=== PATIENT | female | born 1960 | race African-American/Black ===

== ENCOUNTER 2017-03-09 19:25 | Emergency (ER) | payer SELFPAY ==
[2017-03-09] MEDS ORDERED: Metoclopramide HCl 10 MG/2 ML VIAL ONE (20:30)
[2017-03-09] MEDS ORDERED: diphenhydrAMINE 50 MG/ML VIAL ONE (20:30)
[2017-03-09] MEDS ORDERED: Ketorolac Tromethamine 30 MG/ML VIAL ONE (20:30)
[2017-03-09] MEDS ORDERED: cloNIDine 0.1 MG TAB ONE (22:17)
[2017-03-09] MEDS ORDERED: methylPREDNISolone Sod Succ/PF 125 MG/2 ML VIAL ONE (22:17)
[2017-03-09] MEDS ORDERED: Magnesium Sulfate 2 GM/NS 0.9% 50 ML BAG ONE (22:17)
== END 2017-03-09 23:20 | disposition home or self-care (01) ==
LOC: ERS 19:25
DX: R51 Headache (principal)
CPT/HCPCS: 96361; 96365; 96375; J1200; J1885; J2765; J2930; J3475

== ENCOUNTER 2017-03-14 06:12 | Emergency (ER) | payer SELFPAY ==
--- NOTE | 2017-03-14 07:30 | CT ---
HEAD CT WITHOUT CONTRAST: Date: 03/14/17 COMPARISON: 03/22/09. HISTORY: Hypertension and headache. TECHNIQUE: Serial axial CT imaging at 5 mm intervals from vertex through skull base without contrast. FINDINGS: The imaged paranasal sinuses and mastoid air cells are well aerated. There is no displaced calvarial fracture. No intracranial hemorrhage, midline shift, or mass effect. IMPRESSION: No acute findings. POS: [facility]
[2017-03-14] MEDS ORDERED: Metoclopramide HCl 10 MG/2 ML VIAL ONE (07:50)
[2017-03-14] MEDS ORDERED: methylPREDNISolone Sod Succ/PF 125 MG/2 ML VIAL ONE (07:50)
[2017-03-14] MEDS ORDERED: diphenhydrAMINE 50 MG/ML VIAL ONE (07:50)
[2017-03-14] MEDS ORDERED: Ketorolac Tromethamine 30 MG/ML VIAL ONE (07:50)
[2017-03-14] MEDS ORDERED: Water For Inject, Bacteriostat 30 ML ONE (07:50)
== END 2017-03-14 11:40 | disposition home or self-care (01) ==
LOC: ERS 06:12
DX: I10 Essential (primary) hypertension (principal); R51 Headache; Z79.899 Other long term (current) drug therapy
CPT/HCPCS: 70450; 93005; 96361; 96365; 96366; 96375; J1200; J1885; J2765; J2930

== ENCOUNTER 2017-03-15 04:23 | Emergency (ER) | payer SELFPAY ==
[2017-03-15] MEDS ORDERED: Aspirin/APAP/Caffeine Tab (Excedrin Migraine) PO SCH (05:30)
[2017-03-15] MEDS ORDERED: Metoclopramide HCl 10 MG TAB PO SCH (06:30)
[2017-03-15] MEDS ORDERED: Ketorolac Tromethamine 30 MG/ML VIAL ONE (06:32)
[2017-03-15] MEDS ORDERED: diphenhydrAMINE 25 MG CAP ONE (06:32)
--- NOTE | 2017-03-31 17:49 | EKG ---
Test Reason : Blood Pressure : / mmHG Vent. Rate : 076 BPM Atrial Rate : 076 BPM P-R Int : 184 ms QRS Dur : 156 ms QT Int : 430 ms P-R-T Axes : 039 001 014 degrees QTc Int : 483 ms Normal sinus rhythm Right bundle branch block Abnormal ECG Confirmed by OSMEL ZELAYA D.O. ([id number]), telegraph editor LAVON KENNEY ([id number]) on 03/31/2017 5:48:03 PM Referred By: Confirmed By:OSMEL ZELAYA D.O.
== END 2017-03-15 07:52 | disposition home or self-care (01) ==
LOC: ERS 04:23
DX: R51 Headache (principal); I10 Essential (primary) hypertension; G43.909 Migraine, unspecified, not intractable, without status migrainosus; Z79.899 Other long term (current) drug therapy
CPT/HCPCS: 93005; 96372; J1885

== ENCOUNTER 2017-06-09 21:34 | Observation (INO) | payer SELFPAY ==
[2017-06-09] MEDS ORDERED: Acetaminophen 500 MG TAB ONE (21:58)
[2017-06-09 22:01] LABS: #Eosinphils 0.1 thou/uL (0.0-0.7); #Lymphocytes 2.1 thou/uL (1.20-3.40); #Monocytes 0.5 thou/uL (0.11-0.59); #Neutrophils 1.9 thou/uL (1.40-6.50); %Basophils 0.9 % (0.0-1.0); %Eosinophils 2.7 % (0.0-10.0); %Lymphocytes 45.3 % (21.0-51.0); %Monocytes 10.7 % (0.0-10.0); %Neutrophils 40.4 % (42.0-75.0); Hemoglobin 14.1 g/dL (12.0-16.0); Mean Corpuscular HGB CONC 33.9 g/dL (32.0-36.0); Mean Corpuscular Hemoglobin 28.8 pg (27.0-31.0); Mean Platelet Volume 6.6 fL (7.4-10.4); Platelet Count 202 thou/uL (130-400); RBC Distribution Width 13.2 % (11.5-14.5); White Blood Cell (WBC) Count 4.7 thou/uL (4.8-10.8)
[2017-06-09 22:23] LABS: ALT (SGPT) 18 U/L (8-55); AST (SGOT) 24 U/L (5-34); Albumin 4.7 g/dL (3.5-5.0); Alkaline Phosphatase 72 U/L (40-150); Anion Gap 14 mmol/L (10-20); BUN (Urea Nitrogen) 14 mg/dL (9.8-20.1); Bilirubin, Total 0.5 mg/dL (0.2-1.2); Calc. Creatinine Clearance 0 mL/min (70-130); Calcium 10.3 mg/dL (7.8-10.44); Carbon Dioxide 25 mmol/L (22-29); Chloride 102 mmol/L (98-107); Estimated GFR-MDRD 83; Globulin 3.8 g/dL (2.4-3.5); Glucose 109 mg/dL (70-105); Potassium 3.4 mmol/L (3.5-5.1); Protein, Total 8.5 g/dL (6.0-8.3); Sodium 138 mmol/L (136-145)
[2017-06-09 22:26] LABS: CKMB 2.8 ng/mL (0-6.6); Troponin I Less than 0.010 ng/mL (< 0.028)
[2017-06-09] MEDS ORDERED: Metoclopramide HCl 10 MG/2 ML VIAL ONE (22:30)
[2017-06-09] MEDS ORDERED: diphenhydrAMINE 50 MG/ML VIAL ONE (22:33)
--- NOTE | 2017-06-09 22:45 | RAD ---
PORTABLE AP CHEST X-RAY 06/09/17 HISTORY: Chest pain, hypertension, dizziness, and nausea for a couple of days. COMPARISON: 12/05/15 FINDINGS: The cardiac silhouette and pulmonary vasculature are within normal limits. Thoracic aorta is ectatic. Lungs are clear. There has been no interval change compared to the prior exam. IMPRESSION: Stable chest without evidence of an acute cardiopulmonary process. POS: [facility]
--- NOTE | 2017-06-09 23:35 | CT ---
NONCONTRAST CT HEAD 06/09/17 HISTORY: Gradually increasing frontal headache, left arm pain, dizziness and nausea. COMPARISON: 03/14/17. FINDINGS: There is no evidence of a hemorrhage, acute infarction, mass effect, or midline shift. The ventricula r system is normal in size, shape, and position. There has been no interval change when compared to t he prior exam. IMPRESSION: No acute intracranial abnormalities demonstrated. POS: [facility]
[2017-06-10] MEDS ORDERED: Ondansetron HCl/PF 4 MG/2 ML Vial IVP PRN (01:16)
[2017-06-10] MEDS ORDERED: Acetaminophen 325 MG TAB PO PRN (01:16)
[2017-06-10] MEDS ORDERED: Ondansetron ODT 4 MG TAB SL PRN (01:16)
[2017-06-10 01:32] VITALS: BMI 32.3
[2017-06-10 01:36] LABS: Troponin I Less than 0.010 ng/mL (< 0.028)
[2017-06-10] MEDS ORDERED: traMADol HCl 50 MG TAB PO SCH (02:00)
[2017-06-10] MEDS ORDERED: Metoclopramide HCl 10 MG TAB PO PRN (02:37)
[2017-06-10] MEDS ORDERED: Cyclobenzaprine 10 MG TAB PO PRN (02:37)
[2017-06-10 04:20] LABS: Cardiac Risk 4.5 (Less than 4.5)
[2017-06-10 04:24] LABS: Troponin I Less than 0.010 ng/mL (< 0.028)
--- NOTE | 2017-06-10 04:27 | HP ---
PRIMARY CARE PHYSICIAN: Tasia. CHIEF COMPLAINT: Headache with left-sided arm pain. HISTORY OF PRESENT ILLNESS: A 57-year-old female with a history of hypertension and migraines who presents after having sustained migraine for the last day and having concomitant chest pain and headaches with left-sided arm pain. She says symptoms are accompanied by degree of dizziness and nausea and she has had poor p.o. intake over the last 2 days as well. The patient reports a similar prior episode several months ago, which was less severe and self- resolved within minutes. REVIEW OF SYSTEMS: As per HPI. Constitutional: No recent significant weight changes, no fevers, no chills. HEENT: Headaches as per above, better with lights off, basically photophobia, described as all over and a pounding headache without vision change. Complains of degree of dizziness, which is currently not present. Gastrointestinal: Intermittent nausea, particularly when trying to attempt p.o. intake. Otherwise, no nausea. At baseline. No emesis, no abdominal pain, no diarrhea. Cardiovascular: Chest pressure throughout the precordium and in both sides of the chest wall. Otherwise, left- sided arm pain as noted above without left-sided arm numbness or tingling. Respiratory: No shortness of breath, no cough. No upper respiratory symptoms. No congestion. The patient states that before she has had some issues with sinus congestion, but she does not have any today. Genitourinary: Denies any dysuria or change in urinary frequency quality or quantity. MUSCULOSKELETAL: No new myalgias or arthralgias. Review of systems otherwise negative. PAST MEDICAL HISTORY: Hypertension, migraines. HOME MEDICATIONS: Please see the EMR for full details, her list currently include metoclopramide 10 mg p.o. q.12 h. p.r.n., cyclobenzaprine 10 mg p.o. daily p.r.n., hydrochlorothiazide 25 mg p.o. daily and diltiazem 120 mg p.o. daily. The patient denies any recent changes to this regimen over the last 2-3 months. Denies any usage of over the counters, vitamins, or supplements. ALLERGIES: MEPERIDINE and PROPOXYPHENE. FAMILY HISTORY: Significant for hypertension. SOCIAL HISTORY: The patient denies any active alcohol, tobacco or illicit drug use. REVIEW OF SYSTEMS: GENERAL: The patient is awake, alert, appropriate, in no acute distress, able to provide the history as noted above. CARDIOVASCULAR: S1, S2. No murmurs, rubs or gallops. Pulses 2+ bilateral upper extremities, no pitting pedal edema. RESPIRATORY: Clear to auscultation. Reasonable air movement. No wheezes, rales or rhonchi. No conversational dyspnea. GENITOURINARY: Positive bowel sounds. ABDOMEN: Soft, nontender to palpation. MUSCULOSKELETAL: Moving all 4 extremities. Able to self-reposition in the bed without difficulty or assistance. LABORATORY DATA AND IMAGING: WBC 4.7, hemoglobin 14.1, hematocrit 41.7, platelets 202. Sodium 138, potassium 3.4, chloride 102, bicarbonate 25, BUN 14 , creatinine 0.86, glucose 109, calcium 7.3, total bilirubin 0.5, AST 24, ALT 18 , alkaline phosphatase 72. Troponin less than 0.01 x2. Total protein 8.5, albumin 4.7. EKG no changes, no ST elevations, no T-wave inversions consistent with ACS. ASSESSMENT AND PLAN: A 57-year-old female presenting with headache, arm pain and chest pain. Concern for atypical chest pain. We will place the patient on telemetry under observation status. Serial troponins. Echocardiogram with stress test in the morning. Start the patient on aspirin daily at this point in time.Risk factors include hypertension. 1.. Hypertension, likely exacerbated by headache. Continue the patient on her home antihypertensive regimen with p.r.n. medications as needed for blood pressure control. 2. Migraines. The patient currently actively having a migrainous type headache. Continue with analgesia and pain control as well. Closely monitor. 3. Diet: N.p.o. 4. Activity: As tolerated. 5. Deep venous thrombosis prophylaxis, heparin. Thank you for asking me to care for the patient. Questions or concerns, please contact me at [facility]. RENÉE
[2017-06-10] MEDS: traMADol HCl 50 MG TAB PO PRN ×2 (08:38→19:59)
[2017-06-10] MEDS: Hydrochlorothiazide 25 MG TAB PO SCH (11:06)
[2017-06-10] MEDS: Aspirin 325 MG TAB PO SCH (12:24)
--- NOTE | 2017-06-10 14:02 | PDOC.PN ---
- Subjective Encounter Start Date: 06/10/17 Encounter Start Time: 13:56 Ms. Damian was seen today in follow-up today. She says the pain in her left arm is better. She tells me she never had chest pain. She says she always get pain in her left arm, when her blood pressure is elevated. She tells me she has had a RBBB for about a year that she knows about, but has never had an evaluation for it. - Objective MAR Reviewed: Yes Vital Signs & Weight: Vital Signs (12 hours) Temp Pulse Resp BP BP Pulse Ox 06/10/17 12:23 70 155/95 H 06/10/17 12:00 97.8 F 70 14 155/95 H 97 06/10/17 11:36 97.8 F 69 16 158/95 H 98 06/10/17 10:53 97.9 F 74 14 152/87 H 98 06/10/17 07:54 98.1 F 78 16 133/84 97 06/10/17 07:49 98.1 F 78 16 133/84 97 Weight Weight 177 lb 0.005 oz I&O: 06/09/17 06/10/17 06/11/17 06:59 06:59 06:59 Intake Total 480 Output Total 100 Balance 480 -100 Result Diagrams: 06/09/17 21:56 06/09/17 21:56 Phys Exam - Physical Examination HEENT: PERRLA Respiratory: no wheezing, no rales, no rhonchi, clear to auscultation bilateral Cardiovascular: RRR, no significant murmur, no rub Gastrointestinal: soft, non-tender, positive bowel sounds Musculoskeletal: no edema Dx/Plan (1) Headache Code(s): R51 - HEADACHE Status: Acute (2) Hypertension Code(s): I10 - ESSENTIAL (PRIMARY) HYPERTENSION Status: Acute (3) RBBB (right bundle branch block with left anterior fascicular block) Code(s): I45.2 - BIFASCICULAR BLOCK Status: Acute - Plan * Headache- improved with Ultram- possibly related to the elevated blood pressure * Will continue Cardizem for blood pressure and add Clonidine as needed ( which she says she has done in the past ) * Left arm pain- as above likely related to elevated blood pressure * RBBB- this has not been evaluated- will check a stress test, but will need to be a nuclear test, due to baseline EKG being RBBB, and will follow-up on Echo * Home in AM if stress test is negative.
[2017-06-10] MEDS ORDERED: Lorazepam 2 MG/ML VIAL SLOW IVP PRN (16:42)
[2017-06-11] MEDS: traMADol HCl 50 MG TAB PO PRN (05:23)
[2017-06-11] MEDS: Aspirin 325 MG TAB PO SCH (08:23)
[2017-06-11] MEDS ORDERED: hydrALAZINE 20 MG/ML VIAL SLOW IVP PRN (08:53)
[2017-06-11 12:02] VITALS: BP 103/71; TEMP 97.4
[2017-06-11] MEDS: Hydrochlorothiazide 25 MG TAB PO SCH (12:19)
--- NOTE | 2017-06-11 13:59 | NM ---
NUCLEAR MEDICINE CARDIAC MYOCARDIAL PERFUSION SPECT EJECTION FRACTION STUDY WALL MOTION CINE: DATE: 06/11/17. HISTORY: A 57-year-old female with chest pain and hypertension. TECHNIQUE: Number of days: 2. Rest study: Tc99m sestamibi (Cardiolite) dose: 28.0 mCi. Exercise stress: treadmill. Stress study: Tc99m sestamibi (Cardiolite) dose: 30.0 mCi. FINDINGS: CARDIAC (MYOCARDIAL PERFUSION) SPECT Distribution of sestamibi is homogeneous throughout the left ventricle, with no fixed or reversible m yocardial perfusion defects. EJECTION FRACTION STUDY EF = 79% WALL MOTION CINE The left ventricular wall motion is normal. There is normal systolic wall thickening. IMPRESSION: Normal. tamara[] POS: [facility]
--- NOTE | 2017-06-12 09:27 | DIS ---
DATE OF DISCHARGE: 06/11/2017 DISCHARGE DISPOSITION: Home. FOLLOWUP: Follow up with primary care physician at [facility]. ALLERGIES: The patient is allergic to DEMEROL and PROPOXYPHENE. The patient was seen and examined on the day of discharge, denies any new complaints, no new chest pa in. BRIEF HOSPITAL COURSE: The patient is a 57-year-old female with hypertension who presented to the em ergency room with left arm pain along with headache. Please refer to the history and physical dated 06/10/[address] Medina for further details. The patient was admitted to the hospital with a diagnosis of atypical chest pain, rule out acute tania nary syndrome. Serial cardiac enzymes were negative. The patient underwent echocardiogram that show ed left ventricular ejection fraction of 60-65% with trace mitral regurgitation, mild regurgitation. A Cardiolite stress was performed that was negative for reversible ischemia. Ejection fraction was 79%. The patient appears stable for discharge. Plan of care was discussed with the patient. She st ated understanding. FINAL DIAGNOSES: 1. Atypical chest pain, acute coronary syndrome ruled out. 2. Negative Cardiolite stress test. 3. Mild tricuspid regurgitation. 4. Trace mitral regurgitation. 5. Hypertension. 6. Hypokalemia with potassium of 3.4. 7. Dyslipidemia with cholesterol 223, LDL 156, triglyceride 84. 8. Obesity with a BMI 32.6. Statins were offered to the patient, however, the patient requested to try lifestyle modification. Plan of care was discussed with the patient. She stated understanding.
== END 2017-06-11 13:02 | disposition home or self-care (01) ==
LOC: ERS 21:34 → 2SW 06-10 01:14
PROVIDERS: ADMIT Internal Medicine; ATTEND Internal Medicine
DX: R07.89 Other chest pain (principal); I10 Essential (primary) hypertension; E78.5 Hyperlipidemia, unspecified; E87.6 Hypokalemia; I34.0 Nonrheumatic mitral (valve) insufficiency; I07.1 Rheumatic tricuspid insufficiency; G43.909 Migraine, unspecified, not intractable, without status migrainosus; I45.10 Unspecified right bundle-branch block; E66.9 Obesity, unspecified; Z68.32 Body mass index [BMI] 32.0-32.9, adult; Z79.899 Other long term (current) drug therapy; Z88.5 Allergy status to narcotic agent; Z88.6 Allergy status to analgesic agent
CPT/HCPCS: 36415; 70450; 71045; 78452; 80053; 80061; 82553; 84484; 85025; 85730; 93005; 93017; 93306; 94760; 96365; 96366; 96375; A4216; A9500; G0378; J1200; J2060; J2765

== ENCOUNTER 2017-09-24 23:27 | Emergency (ER) | payer SELFPAY ==
[2017-09-25 00:26] LABS: #Eosinphils 0.1 thou/uL (0.0-0.7); #Lymphocytes 1.4 thou/uL (1.20-3.40); #Monocytes 0.5 thou/uL (0.11-0.59); #Neutrophils 1.7 thou/uL (1.40-6.50); %Basophils 0.8 % (0.0-1.0); %Eosinophils 2.7 % (0.0-10.0); %Lymphocytes 37.1 % (21.0-51.0); %Monocytes 13.2 % (0.0-10.0); %Neutrophils 46.2 % (42.0-75.0); Hemoglobin 12.1 g/dL (12.0-16.0); Mean Corpuscular Hemoglobin 30.1 pg (27.0-31.0); Mean Corpuscular Volume 88.5 fL (78.0-98.0); Mean Platelet Volume 7.1 fL (7.4-10.4); Platelet Count 165 thou/uL (130-400); RBC Distribution Width 13.6 % (11.5-14.5); Red Blood Cell (RBC) Count 4.01 mill/uL (4.20-5.40); White Blood Cell (WBC) Count 3.8 thou/uL (4.8-10.8)
[2017-09-25 00:50] LABS: ALT (SGPT) 18 U/L (8-55); AST (SGOT) 21 U/L (5-34); Albumin 3.9 g/dL (3.5-5.0); Alkaline Phosphatase 56 U/L (40-150); Anion Gap 10 mmol/L (10-20); BUN (Urea Nitrogen) 17 mg/dL (9.8-20.1); Bilirubin, Total 0.3 mg/dL (0.2-1.2); CK (CPK) 385 U/L (29-168); Calc. Creatinine Clearance 0 mL/min (70-130); Calcium 9.3 mg/dL (7.8-10.44); Carbon Dioxide 26 mmol/L (22-29); Chloride 107 mmol/L (98-107); Estimated GFR-MDRD 85; Globulin 2.7 g/dL (2.4-3.5); Glucose 91 mg/dL (70-105); Lipase 28 U/L (8-78); Potassium 3.8 mmol/L (3.5-5.1); Protein, Total 6.6 g/dL (6.0-8.3); Sodium 139 mmol/L (136-145)
[2017-09-25 00:52] LABS: CKMB 3.5 ng/mL (0-6.6); Troponin I Less than 0.010 ng/mL (< 0.028)
--- NOTE | 2017-09-25 02:10 | RAD ---
CHEST ONE VIEW: HISTORY: Pain. COMPARISON: 06/09/2017 FINDINGS: Slight elongation of the aorta. Normal cardiac silhouette. Pulmonary vessels and hilum are normal. No masses or consolidation. No pneumothorax or osseous abnormalities. IMPRESSION: No acute cardiopulmonary process. POS: [facility]
== END 2017-09-25 01:31 | disposition home or self-care (01) ==
LOC: ERS 23:27
DX: R07.2 Precordial pain (principal); I10 Essential (primary) hypertension; G43.909 Migraine, unspecified, not intractable, without status migrainosus
CPT/HCPCS: 36415; 71045; 80053; 82553; 83690; 84484; 85025; 93005

== ENCOUNTER 2017-10-22 23:35 | Emergency (ER) | payer SELFPAY ==
[2017-10-23 00:08] LABS: #Eosinphils 0.1 thou/uL (0.0-0.7); #Lymphocytes 1.6 thou/uL (1.20-3.40); #Monocytes 0.5 thou/uL (0.11-0.59); #Neutrophils 2.1 thou/uL (1.40-6.50); %Basophils 0.9 % (0.0-1.0); %Eosinophils 2.1 % (0.0-10.0); %Lymphocytes 36.9 % (21.0-51.0); %Monocytes 10.8 % (0.0-10.0); %Neutrophils 49.4 % (42.0-75.0); Hemoglobin 11.5 g/dL (12.0-16.0); Mean Corpuscular HGB CONC 33.4 g/dL (32.0-36.0); Mean Corpuscular Hemoglobin 29.6 pg (27.0-31.0); Mean Corpuscular Volume 88.6 fL (78.0-98.0); Mean Platelet Volume 6.9 fL (7.4-10.4); Platelet Count 154 thou/uL (130-400); RBC Distribution Width 12.5 % (11.5-14.5); White Blood Cell (WBC) Count 4.2 thou/uL (4.8-10.8)
[2017-10-23 00:29] LABS: ALT (SGPT) 18 U/L (8-55); AST (SGOT) 21 U/L (5-34); Albumin 4.1 g/dL (3.5-5.0); Alkaline Phosphatase 63 U/L (40-150); Anion Gap 11 mmol/L (10-20); BUN (Urea Nitrogen) 20 mg/dL (9.8-20.1); Bilirubin, Total 0.3 mg/dL (0.2-1.2); Calc. Creatinine Clearance 0 mL/min (70-130); Calcium 9.3 mg/dL (7.8-10.44); Carbon Dioxide 26 mmol/L (22-29); Chloride 107 mmol/L (98-107); Estimated GFR-MDRD 67; Globulin 3.1 g/dL (2.4-3.5); Glucose 108 mg/dL (70-105); Magnesium 1.9 mg/dL (1.6-2.6); Potassium 3.5 mmol/L (3.5-5.1); Protein, Total 7.2 g/dL (6.0-8.3); Sodium 140 mmol/L (136-145)
[2017-10-23] MEDS ORDERED: Metoclopramide HCl 10 MG/2 ML VIAL ONE (00:31)
[2017-10-23] MEDS ORDERED: diphenhydrAMINE 50 MG/ML VIAL ONE (00:31)
[2017-10-23] MEDS ORDERED: Ketorolac Tromethamine 30 MG/ML VIAL ONE (00:31)
[2017-10-23 00:32] LABS: CKMB 4.7 ng/mL (0-6.6); Troponin I Less than 0.010 ng/mL (< 0.028)
[2017-10-23 00:48] LABS: Bilirubin Negative (Negative); Blood, Urine Trace (Negative); Clarity CLEAR (Clear); Glucose, Urine (Dipstick) Negative (Negative); Leukocyte Negative (Negative); Nitrite Negative (Negative); Protein, Urine (Dipstick) Negative (Neg-Trace); Specific Gravity, Urine 1.019 (1.002-1.036); Urobilinogen 0.2 mg/dL (0.2-1.0)
[2017-10-23 00:51] LABS: Bacteria/HPF None Seen HPF (None Seen); Hyaline Casts/LPF 0-3 HYALINE CAST LPF (0-3 Hyaline); Squamous Epithelial None Seen HPF (0-3); WBC/HPF None Seen HPF (0-3)
== END 2017-10-23 01:25 | disposition home or self-care (01) ==
LOC: ERS 23:35
DX: G89.29 Other chronic pain (principal); R51 Headache; I10 Essential (primary) hypertension; Z79.899 Other long term (current) drug therapy
CPT/HCPCS: 36415; 80053; 81003; 81015; 82553; 83735; 84484; 85025; 93005; 96365; 96375; J1200; J1885; J2765

== ENCOUNTER 2017-10-29 18:54 | Emergency (ER) | payer SELFPAY ==
[2017-10-29] MEDS ORDERED: diphenhydrAMINE 50 MG/ML VIAL ONE (19:41)
[2017-10-29] MEDS ORDERED: Metoclopramide HCl 10 MG/2 ML VIAL ONE (19:41)
[2017-10-29] MEDS ORDERED: hydrALAZINE 20 MG/ML VIAL ONE ×2 (19:43→23:13)
[2017-10-29 20:16] LABS: #Basophils 0.1 thou/uL (0.0-0.2); #Eosinphils 0.1 thou/uL (0.0-0.7); #Lymphocytes 1.9 thou/uL (1.20-3.40); #Monocytes 0.4 thou/uL (0.11-0.59); #Neutrophils 2.2 thou/uL (1.40-6.50); %Basophils 1.1 % (0.0-1.0); %Eosinophils 1.8 % (0.0-10.0); %Lymphocytes 40.7 % (21.0-51.0); %Monocytes 9.3 % (0.0-10.0); Hemoglobin 13.1 g/dL (12.0-16.0); Mean Corpuscular HGB CONC 34.8 g/dL (32.0-36.0); Mean Corpuscular Hemoglobin 30.3 pg (27.0-31.0); Mean Corpuscular Volume 86.9 fL (78.0-98.0); Mean Platelet Volume 6.7 fL (7.4-10.4); Platelet Count 188 thou/uL (130-400); RBC Distribution Width 12.4 % (11.5-14.5); Red Blood Cell (RBC) Count 4.33 mill/uL (4.20-5.40); White Blood Cell (WBC) Count 4.7 thou/uL (4.8-10.8)
[2017-10-29 20:47] LABS: ALT (SGPT) 20 U/L (8-55); AST (SGOT) 27 U/L (5-34); Albumin 4.6 g/dL (3.5-5.0); Alkaline Phosphatase 74 U/L (40-150); Anion Gap 16 mmol/L (10-20); BUN (Urea Nitrogen) 17 mg/dL (9.8-20.1); Bilirubin, Total 0.2 mg/dL (0.2-1.2); Calc. Creatinine Clearance 0 mL/min (70-130); Calcium 9.7 mg/dL (7.8-10.44); Carbon Dioxide 22 mmol/L (22-29); Chloride 103 mmol/L (98-107); Estimated GFR-MDRD 74; Globulin 3.7 g/dL (2.4-3.5); Glucose 100 mg/dL (70-105); Potassium 3.2 mmol/L (3.5-5.1); Protein, Total 8.3 g/dL (6.0-8.3); Sodium 138 mmol/L (136-145)
[2017-10-29 20:52] LABS: CKMB 6.4 ng/mL (0-6.6); Troponin I Less than 0.010 ng/mL (< 0.028)
[2017-10-29] MEDS ORDERED: methylPREDNISolone Sod Succ/PF 125 MG/2 ML VIAL ONE (22:14)
[2017-10-29] MEDS ORDERED: Magnesium Sulfate 2 GM/100 ML BAG ONE (22:14)
[2017-10-29] MEDS ORDERED: Ketorolac Tromethamine 30 MG/ML VIAL ONE (22:15)
[2017-10-30] MEDS ORDERED: Adacel (T-DAP) 0.5 ML VIAL ONE (02:30)
== END 2017-10-30 00:14 | disposition home or self-care (01) ==
LOC: ERS 18:54
DX: R51 Headache (principal); I10 Essential (primary) hypertension; G43.909 Migraine, unspecified, not intractable, without status migrainosus; Z79.899 Other long term (current) drug therapy
CPT/HCPCS: 36415; 80053; 82553; 84484; 85025; 90715; 96365; 96367; 96375; 96376; J0360; J1200; J1885; J2765; J2930; J3475

== ENCOUNTER 2018-07-02 19:52 | Emergency (ER) | payer SELFPAY | END 2018-07-02 20:25 | disposition left against medical advice (07) | LOC: ERS 19:52 | DX: Z53.21 Procedure and treatment not carried out due to patient leaving prior to being seen by health care provider (principal) ==